=== PATIENT | female | born 2000 | race African-American/Black ===

== ENCOUNTER 2020-01-01 19:58 | Emergency (ER) | payer OTHER ==
[2020-01-01 20:18] VITALS: BP 112/64; PULSE 89; TEMP 98.5; BMI 29.6
[2020-01-01] MEDS ORDERED: IBUPROFEN 600 MG TABLET (FP) PO ONE ×2 (20:37→20:47)
--- NOTE | 2020-01-01 20:42 | PDOC ---
History of Present Illness - General Chief Complaint: Pain, Acute Stated Complaint: LS EAR ACHE Time Seen by Provider: 01/01/20 20:19 History Source: Patient Exam Limitations: No Limitations Past History - Travel History Traveled outside of the country in the last 30 days: No Close contact w/someone who was outside of country & ill: No - Medical History Allergies/Adverse Reactions: Allergies Allergy/AdvReac Type Severity Reaction Status Date / Time No Known Allergies Allergy Verified 01/01/20 20:14 Home Medications: Ambulatory Orders Amox-Tr/K Cl [Augmentin - 875Mg Tablet] 1 tab PO BID #20 tablet 01/01/20 Ibuprofen 600 mg PO Q6H #30 tablet 01/01/20 Ofloxacin Otic [Floxin Otic -] 10 drop OT BID #200 drops 01/01/20 COPD: No - Reproductive History Is Patient Now?: No - Psycho-Social/Smoking History Smoking History: Never smoked - Substance Abuse Hx (Audit-C & DAST Scrn) How often the patient has a drink containing alcohol: Never Score: In Men: 4 or > Positive; In Women: 3 or > Positive: 0 Screen Result (Pos requires Nsg. Audit-10AR): Negative Review of Systems - Review of Systems Able to Perform ROS?: Yes Comments:: 01/01/20 20:49 CONSTITUTIONAL: Absent: fever, chills, diaphoresis, generalized weakness, malaise, loss of appetite HEENT: Present: L ear pain Absent: rhinorrhea, nasal congestion, throat pain, throat swelling, difficulty swallowing, mouth swelling, ear pain, eye pain, visual changes MUSCULOSKELETAL: Absent: myalgia, arthralgia, joint swelling SKIN: Absent: rash, itching, pallor NEUROLOGIC: Absent: headache, focal weakness or paresthesias, dizziness, unsteady gait, seizure, mental status changes, bladder or bowel incontinence PSYCHIATRIC: Absent: anxiety, depression, suicidal or homicidal ideation, hallucinations. Is the patient limited Japanese proficient: No *Physical Exam - Vital Signs Last Vital Signs Temp Pulse Resp BP Pulse Ox 98.5 F 89 19 112/64 100 01/01/20 20:08 01/01/20 20:08 01/01/20 20:08 01/01/20 20:08 01/01/20 20:08 - Physical Exam 01/01/20 20:49 GENERAL: The patient is awake, alert, and fully oriented, in no acute distress. HEAD: Normal with no signs of trauma. EYES: Pupils equal, round and reactive to light, extraocular movements intact, sclera anicteric, conjunctiva clear. HEENT: No nasal congestion or rhinorrhea. No sinus Tenderness. Mucous membranes are moist. No tonsillar erythema, exudate or edema. Uvula is midline. L TM bulging, dullness and mucoid discharge. R TM with purulent discharge, TM intact EXTREMITIES: Normal range of motion, no edema. NEUROLOGICAL: Normal speech, normal gait. PSYCH: Normal mood, normal affect. SKIN: Warm, Dry, normal turgor, no rashes or lesions noted. Medical Decision Making - Medical Decision Making 01/01/20 20:51 Patient is here 1-year-old female who presents to the ER with 2 days of left ear pain. She is not taken anything for the medication. She notes that she had ear problems as a child however she is unsure as to what those problems were. Denies hearing changes, throat pain and fever. A/P: Otitis externa/media On exam patient is a clinical otitis media possible rupture or otitis externa. Difficult to evaluate the eardrum at this time due to mucoid discharge. We will place patient on both ofloxacin drops and Augmentin to cover potential Pseudomonas. Motrin given for pain Discharge home with explanation for need of ENT follow-up. Patient lives in [facility] I discussed the physical exam findings, ancillary test results and final diagnoses with the patient. I answered all of the patient's questions. The patient was satisfied with the care received and felt comfortable with the discharge plan and treatment plan. The Patient agrees to follow up with the primary care physician/specialist within 24-72 hours. Return precautions were given. Discharge - Discharge Information Problems reviewed: Yes Clinical Impression/Diagnosis: Otitis media Qualifiers: Otitis media type: mucoid Chronicity: acute Laterality: left Qualified Code(s): H65.112 - Acute and subacute allergic otitis media (mucoid) (sanguinous) (serous), left ear Condition: Stable Disposition: HOME - Admission No - Additional Discharge Information Prescriptions: Amox-Tr/K Cl [Augmentin - 875Mg Tablet] 1 tab PO BID #20 tablet Ofloxacin Otic [Floxin Otic -] 10 drop OT BID #200 drops Ibuprofen 600 mg PO Q6H #30 tablet - Follow up/Referral Referrals: ON STAFF,NOT [Primary Care Provider] - - Patient Discharge Instructions Patient Printed Discharge Instructions: DI for Ear Pain-Adult Additional Instructions: You have an ear infection Please take the antibiotics as prescribed. Take the entire dose even if you feel better. You may take Tylenol or Motrin as needed for pain. Follow the manufacture's instructions. Do not put anything in the ear. Keep the ear clean and dry Follow up with your primary care doctor within the week. Return to the ED if you have worsening pain, fevers, chills, or have any changes in your symptoms. - Post Discharge Activity
== END 2020-01-01 21:26 | disposition home or self-care (01) ==
LOC: JER 19:58
DX: H65.112 Acute and subacute allergic otitis media (mucoid) (sanguinous) (serous), left ear (principal)
CPT/HCPCS: 99283-25